=== PATIENT | female | born 1970 | race Caucasian/White ===

== ENCOUNTER → 2018-09-12 | Day surgery (SDC) | payer OTHER ==
[2018-09-11 09:26] VITALS: BMI 29.2
[~2018-09-12] MED LIST: LACTATED RINGERS 1,000 ML IV SCH; LIDOCAINE 1% 20 ML VIAL (10MG/ML) FOR IV START INTRADERMA PRN; PROPOFOL 10 MG/ML 20 ML VIAL IV ONE
[2018-09-12 07:14] VITALS: RESP 20; TEMP 98.9
--- NOTE | 2018-09-12 07:52 | P.GSHP ---
History of Present Illness H&P Date: 09/12/18 Chief Complaint: Screening colonoscopy This a 48-year-old female who presents today for screening colonoscopy. Patient denies any significant GI complaints. Past Medical History Past Medical History: Asthma, Thyroid Disorder Additional Past Medical History / Comment(s): "low thyroid in past"-ok now History of Any Multi-Drug Resistant Organisms: None Reported Additional Past Surgical History / Comment(s): biopsy of vulva Past Anesthesia/Blood Transfusion Reactions: No Reported Reaction Smoking Status: Never smoker Medications and Allergies Home Medications Medication Instructions Recorded Confirmed Type No Known Home Medications 09/11/18 09/12/18 History Allergies Allergy/AdvReac Type Severity Reaction Status Date / Time No Known Allergies Allergy Verified 09/11/18 09:21 Surgical - Exam Vital Signs Temp Pulse Resp BP Pulse Ox 98.9 F 100 20 159/77 100 09/12/18 07:11 09/12/18 07:11 09/12/18 07:11 09/12/18 07:11 09/12/18 07:11 - General well developed, well nourished, no distress - Eyes PERRL - ENT normal pinna - Neck no masses - Respiratory normal expansion - Cardiovascular Rhythm: regular - Abdomen Abdomen: soft, non tender Assessment and Plan Assessment: We'll perform screening colonoscopy.
--- NOTE | 2018-09-12 08:09 | P.OP ---
Date of Procedure: 09/12/18 Preoperative Diagnosis: Screening colonoscopy Postoperative Diagnosis: Normal colon Procedure(s) Performed: Huong Anesthesia: MAC Surgeon: Gene Borja Pathology: none sent Condition: stable Disposition: PACU Description of Procedure: PROCEDURE: The patient was placed on the endoscopy table in the lateral position. Digital rectal examination was performed which revealed no abnormalities. . Flexible colonoscope was then placed in the patient's anus and passed throughout the entire colon. The ileocecal valve was visualized. The cecum, ascending, transverse, descending and sigmoid colon were normal. The rectum was normal as well. There were no masses, polyps or diverticula noted in the entire colon. SUMMARY OF FINDINGS: Normal colonoscopy.
[2018-09-12 08:48] VITALS: BP 132/86; PULSE 72
== END | disposition home or self-care (01) ==
LOC: ORWHC2ENDO 06:53
PROVIDERS: ATTEND Surgery
DX: Z12.11 Encounter for screening for malignant neoplasm of colon (principal); J45.909 Unspecified asthma, uncomplicated; E07.9 Disorder of thyroid, unspecified
CPT/HCPCS: 81025; J2704; G0121